=== PATIENT | female | born 1960 | race Caucasian/White ===

== ENCOUNTER 2019-11-04 01:34 | Day surgery (SDC) | payer OTHER, SELFPAY ==
[2019-10-20 13:45] VITALS: BMI 25.9
[2019-11-04 06:03] VITALS: BP 135/59; PULSE 57; RESP 16; TEMP 36.6; O2SAT 100
[2019-11-04] MEDS: LACTATED RINGERS 1,000 ML 30 ML IV CONT (06:30)
--- NOTE | 2019-11-04 07:15 | WPDANESEPPF ---
Anes - Initial Pre Proc Eval Procedure: Operation Date: 11/04/19 08:00 Proposed Procedures p Rectocele Repair - Venu Felipe MD Date/Time: 11/04/19 07:15 Surgeon: Venu Felipe MD Pre Op Diagnosis: Rectocele Patient Data Age: 58 Gender: F Height: 5 ft 7 in Weight: 75.3 kg Allergies Allergy/AdvReac Type Severity Reaction Status Date / Time amoxicillin [From Augmentin] AdvReac Mild Rash Verified 11/04/19 07:09 clavulanic acid AdvReac Mild Rash Verified 11/04/19 07:09 [From Augmentin] Home Medications Medication Instructions Recorded Confirmed Type clobetasol See Rx Instructions .ROUTE .COMPLEX 10/20/19 10/20/19 History conj estrog-medroxyprogest krish 1 tablet PO DAILY 10/20/19 11/04/19 History [Prempro] Patient hx anesthesia problems: none Family hx anesthesia problems: none Anes - Eval Final PreProcedure Day of Procedure 11/04/19 07:15 Patient weight: normal Heart: regular rate and rhythm Lungs: clear to auscultation Airway: Mallampati scale class II Neurological: alert and oriented Last oral intake: >/= 8 hours ASA classification: I Emergent: no Anesthetic plan: proceed Anesthesia type and monitoring: general LMA and standard monitoring Informed Consent: The patient's anesthetic plan and its attendant risks and benefits were discussed with the patient/family/POA. Questions were solicited and answers provided to the satisfaction of the patient/family/POA.
--- NOTE | 2019-11-04 07:24 | WPDHPUPDATE1 ---
History and Physical Update Update Date/Time: 11/04/19 07:24 History and Physical has been reviewed, including an updated exam of the patient. There are NO changes in the patient's condition. Risks, benefits, and alternatives have been discussed and questions answered. Patient agrees to proceed with procedure.
--- NOTE | 2019-11-04 07:31 | WPDHPUPDATE1 ---
History and Physical Update Update Date/Time: 11/04/19 07:31 History and Physical has been reviewed, including an updated exam of the patient. There are NO changes in the patient's condition. Risks, benefits, and alternatives have been discussed and questions answered. Patient agrees to proceed with procedure. Plan for rectocele repair
[2019-11-04] MEDS: ceFAZolin 2 GM/D5W 50 ML 2 GM/50 ML BAG IVPB (07:59)
[2019-11-04] MEDS: BUPIVACAINE/EPINEPHRINE 0.25% 50 ML VIAL INFILTRATE (08:22)
--- NOTE | 2019-11-04 08:44 | P.OP_ITS ---
Procedure Note - Detailed Date of procedure: 11/04/19 Pre-op diagnosis: Rectocele Rectocele Female perineal laxity Post-op diagnosis: same Procedure performed: Rectocele repair/posterior colporrhaphy Perineoplasty Description of procedure: She understands the risks of bleeding, infection, damage to surrounding organs, dyspareunia, and recurrence of prolapse. She agrees to proceed. She was correctly identified and informed consent was obtained. She is brought to the operating room. She was given general anesthesia. She was placed in the dorsal lithotomy position. She was prepped and draped in a sterile fashion. She was given appropriate perioperative antibiotics. A time-out was performed. A [place] retractor was placed. A Amor catheter was in place. I grasped the rectocele with Allis clamps. I infiltrated the subcutaneous tissues with local mixed with saline. I made a midline incision on the posterior vaginal wall. I dissected the mucosa off the underlying fascial structures out laterally. And then toward the apex. There is no sign of any violation to surrounding organs. I then performed a standard rectocele repair. I used interrupted 0 Vicryl sutures. This reduced the rectocele. I then trimmed excess vaginal mucosa. I then closed the mucosa with a running 2 0 Vicryl suture. There was excellent hemostasis. There was reduction of the rectocele. I then removed the [place] retractor. I turned my attention towards the perineum. I anesthetized the eric-shaped area of skin on the perineum. I removed that area of skin. I performed a perineal plasty with 0 Vicryl sutures. I then used a 2 Vicryl to close the mucosa. There was excellent support of the perineum without undue narrowing of the vagina. A rectal exam confirmed no injury to the rectum. Implants: None Anesthesia: GLMA Surgeon: Venu Felipe MD Drains: No Packing: No Pathology: none sent Complications: No immediate complications Condition: stable Disposition: PACU
[2019-11-04 08:49] VITALS: BP 88/46; PULSE 63; RESP 12; TEMP 36.8; O2SAT 99
[2019-11-04 09:00] VITALS: BP 69/60; PULSE 71; RESP 17; O2SAT 98
[2019-11-04 09:15] VITALS: BP 113/75; PULSE 59; RESP 13; O2SAT 99
[2019-11-04 09:23] VITALS: BP 107/72; PULSE 69; RESP 16
--- NOTE | 2019-11-04 09:41 | SUR.PHASEII ---
NO RECTAL BLEEDING ON PERIPAD.
[2019-11-04 09:50] VITALS: BP 124/71; PULSE 54; RESP 16
== END 2019-11-04 09:55 | disposition home or self-care (01) ==
PROVIDERS: PCP Family Medicine; Visit Provider Urology
PROC: 0JQC0ZZ Repair Pelvic Region Subcutaneous Tissue and Fascia, Open Approach (ICD-10-PCS; CPT 45560; principal; 2019-11-04 08:00)
DX: N81.6 Rectocele (principal)
CPT/HCPCS: 57250; A9270; J0131; J0690; J1100; J2250; J2405; J2704; J3010; J7030; J7120

== ENCOUNTER 2020-02-05 09:44 | Emergency (ER) | payer OTHER, SELFPAY ==
[2020-02-05 10:13] VITALS: BP 128/73; PULSE 79; RESP 16; TEMP 37.2; O2SAT 100
--- NOTE | 2020-02-05 11:00 | ED.GENADULT ---
HPI - General Adult General Chief complaint: Wound/Laceration Stated complaint: laceration on finger Time Seen by Provider: 02/05/20 11:01 Source: patient and RN notes reviewed Mode of arrival: ambulatory Limitations: no limitations History of Present Illness HPI narrative: 59-year-old female presents with complaints of laceration to finger on right hand to dorsal 3rd (middle) finger, caused by hitting hand across a wooden bridge approximately 1 hour ago. Regine says she was walking her dog (Fredy Vilchis) and the dog went around the bridge too fast catching her hand on the wooden bridge. Denies focal weakness, altered sensation, rash, fever or chills, diarrhea, nausea or vomiting and abdominal pain. Tolerating po intake well. RIGHT HAND is dominant hand. Denies pain, numbness or tingling, or loss of mobility. No foreign body sensation. Last Tetanus 2012 will vaccine today. Denies headaches, weakness, fatigue, myalgia, or facial swelling. Denies chest pain or dyspnea. Denies cough, rhinorrhea, congestion and sore throat. Denies recent traveling. Denies concern for COVID-19 or exposures been home since [id number] order except for essential household needs and return home. Some parts of this dictation were generated by voice recognition software and may contain typographical and/or grammatical inaccuracies Related Data Home Medications Medication Instructions Recorded Confirmed Vitamin B-12 02/05/20 conj estrog-medroxyprogest krish tablet 02/05/20 [Prempro] omeprazole 20 mg PO DAILY 02/05/20 02/05/20 Allergies Allergy/AdvReac Type Severity Reaction Status Date / Time No Known Allergies Allergy Verified 09/12/19 10:18 Review of Systems Review of Systems: Narrative: CONSTITUTIONAL: Denies fever, chills, sweats. EYES: Denies visual changes, redness, discharge. ENT: Denies rhinorrhea, congestion, sore throat, otalgia. CARDIOVASCULAR: Denies chest pain, palpitations, edema. RESPIRATORY: Denies dyspnea, wheezing, cough. GASTROINTESTINAL: Denies abdominal pain, nausea, vomiting, or diarrhea. GENITOURINARY: Denies dysuria, hematuria, abnormal discharge. SKIN: Denies rash or itching. Complains of laceration to right dorsal 3rd finger (middle) of RT hand. MUSCULOSKELETAL: Denies acute back pain, joint pain, or myalgia. NEUROLOGIC: Denies numbness or focal weakness. PSYCHIATRIC: Denies anxiety or depression. All other systems reviewed are negative, except as documented in HPI and below. [facility] Past Medical History Medical History (Updated 02/06/20 @ 00:00 by Baljeet Duarte) History of gastroesophageal reflux (GERD) Post-menopausal Surgical History Surgical History (Updated 02/05/20 @ 18:27 by NENO Amato) History of arthroscopy of knee LT knee 2018 History of bilateral breast reduction surgery 2009 History of reconstructive repair of rectocele 10/2019 Family History Family History (Updated 02/05/20 @ 11:52 by NENO Amato) Father Hypertension Mother Hypertension Diabetes mellitus Sibling Ovarian cancer Social History Social History (Updated 02/05/20 @ 11:53 by NENO Amato) Smoking status: Never smoker Second hand tobacco smoke exposure: No Alcohol intake: current Substance use: never Living arrangements: with family Occupation/Education: occupation Gender identity (if verbalized by the patient): Female Comments At time of signature, agree with nurse past medical, surgical, social, and family history. There is no relevant family history pertinent to the presenting complaint. Exam Narrative: Exam Narrative: GENERAL: This is a well-nourished, well-developed patient, in no apparent distress. HEAD: normocephalic, atraumatic. CARDIOVASCULAR: Regular rate and rhythm without murmurs, gallops, or rubs. RESPIRATORY: Clear to auscultation. Breath sounds equal bilaterally. No wheezes, rales, or rho
[2020-02-05] MEDS: TETANUS,DIPHTHERIA,AC PERTUSSIS ADULT 0.5 ML (ADACEL) IM (11:28)
== END 2020-02-05 12:00 | disposition home or self-care (01) ==
PROVIDERS: Emergency Provider Nurse Practitioner Family; PCP Family Medicine
DX: S61.212A Laceration without foreign body of right middle finger without damage to nail, initial encounter (principal); K21.9 Gastro-esophageal reflux disease without esophagitis; Z23 Encounter for immunization; W22.8XXA Striking against or struck by other objects, initial encounter; Y93.K1 Activity, walking an animal
CPT/HCPCS: 12002; 90471; 90715; 99213; G0463